=== PATIENT | male | born 1960 | race Two or more races ===

== ENCOUNTER 2024-08-15 11:47 | Emergency (ER) | payer OTHER ==
[~2024-08-15] VITALS: Ht 172.7 cm; Wt 112.5 kg
[2024-08-15] MEDS ORDERED: CEFTRIAXONE SODIUM 1,000 MG VIAL IM STA (12:53)
[2024-08-15] MEDS ORDERED: CEFTRIAXONE SODIUM 1,000 MG VIAL ONE (13:13)
[2024-08-15] MEDS ORDERED: LIDOCAINE HCL 1% 10ML VIAL ONE (13:15)
[2024-08-15 13:38] LABS: HEMATOCRIT 37.1 % (39.0-48.0); HEMOGLOBIN 12.4 g/dL (13-16.00); MEAN CORPUSCULAR HEMOGLOBIN 29.7 pg (27.00-32.0); MEAN CORPUSCULAR HGB CONC 33.4 g/dl (32.0-36.0); PLATELET COUNT 183 K/uL (150-450); RED BLOOD COUNT 4.17 M/uL (4.00-6.00); RED CELL DISTRIBUTION WIDTH 14.9 % (11.5-14.5)
[2024-08-15 14:03] LABS: BILIRUBIN TOTAL 0.54 mg/dL (0.3-1.2); CALCIUM 9.2 mg/dL (8.5-10.1); CREATININE SERUM 0.82 mg/dL (0.70-1.30); GLOBULINA 3.7 G/DL (2.4-3.5); INR 1.05; PARTIAL THROMBOPLASTIN TIME 20.2 SECONDS (22.0-34.0); POTASSIUM 4.03 mEq/L (3.5-5.1); PROTHROMBIN TIME 11.4 SECONDS (9.0-11.5); TOTAL PROTEIN 6.7 gm/dL (6.4-8.2)
== END 2024-08-15 14:28 | disposition home or self-care (01) ==
LOC: ER 11:48
PROVIDERS: General Practice
DX: R04.0 Epistaxis (principal)
CPT/HCPCS: 36415; 96372; 99283; J0696

== ENCOUNTER 2025-07-06 07:45 | Inpatient (IN) | payer OTHER ==
[~2025-07-06] VITALS: Ht 172.7 cm; Wt 108.4 kg
[2025-07-06 09:01] VITALS: BP 123/80
[2025-07-06 09:01] LABS: BASO % 0.6 % (0.1-1.2); EOS # 0.16 (0.04-0.54); EOS % 1.9 % (0.7-7.0); LYMPH # 2.56 (1.18-3.74); LYMPH % 31.1 % (19.3-53.1); MEAN PLATELET VOLUME 10.90 fl (9.4-12.4); MONO # 0.74 (0.24-0.82); MONO % 9.0 % (4.7-12.5); NEUT # 4.69 (1.56-6.13); NEUT % 57.2 % (34.0-71.1); RED CELL DISTRIBUTION WIDTH 14.1 % (11.6-14.4)
[2025-07-06 09:05] LABS: URINE APPEARANCE Clear; URINE BILIRRUBIN Negative (NEGATIVE); URINE BLOOD Negative; URINE COLOR Yellow; URINE GLUCOSE Negative (NEGATIVE); URINE KETONE Trace (NEGATIVE); URINE LEUKOCYTE Negative; URINE NITRATE Negative; URINE PROTEIN Negative (NEGATIVE); URINE UROBILINOGEN 0.2 E.U./dl
[2025-07-06 09:07] LABS: URINE BACTERIA 4.7 uL (0.0-1933); URINE EPITHELIAL CELLS 3.2 uL (0.0-38.8); URINE RBC 6.8 uL (0.0-20.8); URINE WBC 2.7 uL (0.0-23.2)
[2025-07-06 09:11] LABS: URINE CAST 0.29 uL (0.0-1.40)
[2025-07-06 09:34] LABS: COVID-19 AG NEGATIVE (NEGATIVE)
[2025-07-06 09:38] LABS: INR 1.08
[2025-07-06 09:44] LABS: ALT/SGPT 56.0 U/L (12-78); AST/SGOT 29.0 U/L (15-37); BILIRUBIN TOTAL 0.8 mg/dL (0.3-1.2); BUN CREA RATIO 14.0 (7.0-25.0); CHOL HDL RATIO 3.7 (0-5.0); CREATININE SERUM 0.77 mg/dL (0.70-1.30); GFR 100.77; GLOBULINA 3.4 G/DL (2.4-3.5); GLUCOSE FASTING 95.0 mg/dL (65-100); HDL 46.0 mg/dl (40-60); LDL 80.0 mg/dl (0-130); OSMOLALITY SERUM 286.0 MOSM/KG (275-295); VLDL 44.0 (0-39)
[2025-07-06 10:52] LABS: RH POSITIVE
[2025-07-11] MEDS ORDERED: CEFAZOLIN SODIUM 1,000 MG VIAL IV ONE (09:15)
[2025-07-11] MEDS ORDERED: MORPHINE SULFATE 4 MG/ML CARTRIDGE IV ONE (09:15)
[2025-07-11] MEDS ORDERED: VANCOMYCIN HCL 1,000 MG VIAL IR ONE (09:15)
[2025-07-11] MEDS ORDERED: KETOROLAC TROMETHAMINE 60 MG VIAL IM ONE (09:15)
[2025-07-11] MEDS ORDERED: BUPIVACAINE HCL 30 ML VIAL IJ ONE (09:15)
[2025-07-11] MEDS ORDERED: TRANEXAMIC ACID 100MG/1ML (1000MG) AMPUL IV ONE ×2 (09:15)
[2025-07-11] MEDS ORDERED: LIDOCAINE HCL 1%/EPINEPHRINE 20ML VIAL IJ ONE (09:15)
[2025-07-11] MEDS ORDERED: SODIUM CHLORIDE 0.45 % 1,000 ML IV SCH (11:45)
[2025-07-11] MEDS ORDERED: ONDANSETRON HCL 2 MG/ML VIAL IV PRN (11:45)
[2025-07-11] MEDS ORDERED: OxyCODONE HCL 5 MG TABLET (ROXICODONE) PO PRN (11:45)
[2025-07-11] MEDS ORDERED: MORPHINE SULFATE 4 MG/ML CARTRIDGE IV PRN (11:45)
[2025-07-11] MEDS ORDERED: ACETAMINOPHEN 500 MG GEL..CAP PO SCH (12:00)
[2025-07-11] MEDS ORDERED: ENALAPRILAT DIHYDRATE 1.25 MG/ML VIAL IV PRN (13:45)
[2025-07-11 16:00] VITALS: BP 138/76
[2025-07-11] MEDS ORDERED: CEFAZOLIN SODIUM 1,000 MG VIAL IV SCH (17:00)
[2025-07-11] MEDS ORDERED: GABAPENTIN 300 MG CAPSULE PO SCH (17:00)
[2025-07-12 07:01] LABS: BASO % 0.3 % (0.1-1.2); EOS # 0.12 (0.04-0.54); EOS % 1.2 % (0.7-7.0); LYMPH # 1.61 (1.18-3.74); LYMPH % 15.6 % (19.3-53.1); MEAN PLATELET VOLUME 11.50 fl (9.4-12.4); MONO # 0.81 (0.24-0.82); MONO % 7.8 % (4.7-12.5); NEUT # 7.69 (1.56-6.13); NEUT % 74.3 % (34.0-71.1); RED CELL DISTRIBUTION WIDTH 14.0 % (11.6-14.4)
[2025-07-12] MEDS ORDERED: SENNOSIDES 1 TAB TABLET PO SCH (09:00)
[2025-07-12] MEDS ORDERED: APIXABAN 2.5 MG TABLET PO SCH (09:00)
[2025-07-12] MEDS ORDERED: ELIQUIS2.5 MG PO (09:06)
[2025-07-12] MEDS ORDERED: PERCOCET 5-3251 EACH PO (09:06)
[2025-07-12] MEDS ORDERED: DUI500 PO (09:06)
[2025-07-12 11:24] VITALS: BP 132/79; O2SAT 96
[2025-07-12 13:36] LABS: COVID-19 AG NEGATIVE (NEGATIVE)
[2025-07-12 17:18] VITALS: BP 145/77; O2SAT 94
[2025-07-13] MEDS ORDERED: IRON FUM,PS/FOLIC ACID/VITC/B3 1 CAP CAPSULE PO SCH (09:00)
== END 2025-07-12 19:09 | DRG 470 ==
LOC: O/R 07-11 05:32 → SURG 07-11 05:32 → SURH 07-11 07:45 → SURG 07-11 12:46 → SURH 07-11 13:30 → SURG 07-12 19:09
PROVIDERS: ADMIT Orthopaedic Surgery; ATTEND Orthopaedic Surgery
PROC: 0QUD0JZ Supplement Right Patella with Synthetic Substitute, Open Approach (ICD-10-PCS; 2025-07-11)
PROC: 0QUD0KZ Supplement Right Patella with Nonautologous Tissue Substitute, Open Approach (ICD-10-PCS; 2025-07-11)
PROC: 0MNN0ZZ Release Right Knee Bursa and Ligament, Open Approach (ICD-10-PCS; 2025-07-11)
PROC: 0SRC0JZ Replacement of Right Knee Joint with Synthetic Substitute, Open Approach (ICD-10-PCS; principal; 2025-07-11 13:30)
DX: M17.11 Unilateral primary osteoarthritis, right knee (principal); G47.33 Obstructive sleep apnea (adult) (pediatric); E66.9 Obesity, unspecified; Z96.651 Presence of right artificial knee joint; I10 Essential (primary) hypertension; Z68.36 Body mass index [BMI] 36.0-36.9, adult